=== PATIENT | male | born 1980 | race African-American/Black ===

== ENCOUNTER 2016-07-19 21:30 | Emergency (ER) | payer OTHER ==
--- NOTE | ~2016-07-19 | CT4 ---
[facility] A Service of [facility] RADIOLOGY TEXT RESULTS PATIENT: DALE GRACE LOCATION: [facility] : 78 UNIT #: [id number] AGE: [address]: Joseph Castillo MD SEX: M ORDER DR: [id number] [facility] [address]. [place], [place] [address] [id number] MR#: [id number] Acc #: [id number] NAME: DALE GRACE : 1980 SEX: M STUDY DATE/TIME: 07/19/2016 22:31 UNIT: [facility] ROOM: STUDY DESCRIPTION: CT Abd and Pelv Wo Cont Attending Physician: Carlos Castillo M.D. Ordering Physician: Fran Monsivais M.D. Primary Care Physician: No Primary Care Physician MEDICAL IMAGING REPORT This report is preliminary unless electronic signature is present EXAM CT abdomen and pelvis without contrast HISTORY Bilateral flank pain and back pain for [address] exam was performed with one or more of the following radiation dose reduction techniques: automatic control, adjustment of mA and/or kV according to patient size, and iterative reconstruction. FINDINGS CT abdomen and pelvis was performed without contrast CT ABDOMEN: No renal calculi or hydronephrosis. No perinephric stranding. The liver, gallbladder, pancreas, and adrenal glands are normal. Parenchymal scar in the mid spleen measures approximately 2 cm. No ascites. No adenopathy. Normal caliber abdominal aorta. CT PELVIS: Appendectomy. No free fluid. No adenopathy or bowel dilatation. The urinary bladder is unremarkable. IMPRESSION 1. No acute findings in the abdomen or pelvis. 2. Appendectomy. 3. No urinary calculi or obstruction. Dictated by... Bobby Watkins M.D. THIS IS AN ELECTRONICALLY VERIFIED REPORT Bobby Watkins M.D. at 07/20/2016 10:57 PM [facility] A Service of [facility] RADIOLOGY TEXT RESULTS PATIENT: DALE GRACE LOCATION: [facility] : 78 UNIT #: [id number] AGE: [address]: Joseph Castillo MD SEX: M ORDER DR: CEE/justin TD: 07/20/2016 03:15 JOB #: [id number] MEDICAL IMAGING REPORT Page 1 of 1 COPY
[2016-07-19 20:03] LABS: BASOPHIL# 0.1 X10e3 (0-0.3); BASOPHIL% 0.8 % (0-2.5); EOSINOPHIL# 0.2 X10e3 (0-0.7); EOSINOPHIL% 1.9 % (0.0-7.0); LYMPHOCYTE# 2.2 X10e3 (1.0-3.5); MEAN CELL VOLUME 91.5 FL (83-96); MEAN CORPUSCULAR HEMOGLOBIN 29.8 PG (28-34); MEAN CORPUSCULAR HGB CONC 32.6 g/dL (30-36); MEAN PLATELET VOLUME 8.6 FL (6.5-11.5); MONOCYTE# 0.5 X10e3 (0-1.0); MONOCYTE% 6.4 % (3.0-12.0); NEUTROPHIL# 5.7 X10e3 (1.5-7.1); NEUTROPHIL% 65.9 % (40-75); PLATELET COUNT 235 X10e3 (140-420); RED CELL DISTRIBUTION WIDTH 13.9 % (11.0-15.5); WHITE BLOOD COUNT 8.6 X10e3 (4.0-10.5)
[2016-07-19 20:05] LABS: DIFF IND NO
[2016-07-19 20:28] LABS: ALBUMIN SERUM 4.1 g/dL (3.5-5.0); ALKALINE PHOSPHATASE 67 U/L (32-92); ALT (SGPT) 33 U/L (10-40); AST (SGOT) 21 U/L (10-42); BILIRUBIN,TOTAL 0.4 mg/dL (0.2-2.0); BLOOD UREA NITROGEN 13 mg/dL (9-23); BUN/CREATININE RATIO 11.81; CALCIUM SERUM 9.2 mg/dL (8.4-10.2); CARBON DIOXIDE 26 mmol/L (22-31); CHLORIDE 106 mmol/L (100-111); CREATININE SERUM 1.1 mg/dL (0.6-1.4); GLOM FILT RATE Estimated 98.9 mL/min (>60); GLUCOSE FASTING 105 mg/dL (70-110); LIPASE 31 U/L (22-51); POTASSIUM 3.4 mmol/L (3.5-5.1); PROTEIN TOTAL SERUM 7.6 g/dL (6.0-8.3); SODIUM 139 mmol/L (135-145)
[2016-07-19 20:41] LABS: BILIRUBIN, DIRECT <0.1 mg/dL (0.0-0.2); BILIRUBIN,INDIRECT 0.3 mg/dL (0.0-0.9)
[2016-07-19 21:12] LABS: URINE SOURCE CLEAN CATCH
[2016-07-19 21:17] LABS: URINE APPEARANCE CLEAR; URINE BILIRUBIN NEG (NEG); URINE BLOOD NEG (NEG); URINE COLOR YELLOW; URINE GLUCOSE NEG (NEG); URINE KETONE NEG (NEG); URINE LEUKOCYTE ESTERASE NEG (NEG); URINE NITRATE NEG (NEG); URINE PH 5.5 (5-8); URINE PROTEIN NEG (NEG); URINE SPECIFIC GRAVITY 1.028 (1.003-1.035)
[2016-07-19 21:23] LABS: CULTURE INDICATED? NO
[2016-07-23 01:59] LABS: CHLAMYDIA TRACH Not Detected (Not Detected); N GONOR Not Detected (Not Detected)
== END 2016-07-19 23:50 | disposition home or self-care (01) ==
LOC: CED 21:30
PROVIDERS: Emergency Medicine
DX: M54.5 Low back pain (principal); F17.210 Nicotine dependence, cigarettes, uncomplicated
CPT/HCPCS: 36415; 74176; 80048; 80076; 81003; 83690; 85025; 87491; 87591; 96374; 99284; J1885

== ENCOUNTER 2016-08-14 14:50 | Emergency (ER) | payer OTHER ==
[2016-08-14 15:41] LABS: BASOPHIL# 0.1 X10e3 (0-0.3); BASOPHIL% 1.2 % (0-2.5); EOSINOPHIL# 0.1 X10e3 (0-0.7); EOSINOPHIL% 1.8 % (0.0-7.0); LYMPHOCYTE# 1.6 X10e3 (1.0-3.5); LYMPHOCYTE% 21.1 % (17.0-45.0); MEAN CELL VOLUME 91.3 FL (83-96); MEAN CORPUSCULAR HEMOGLOBIN 29.7 PG (28-34); MEAN CORPUSCULAR HGB CONC 32.6 g/dL (30-36); MEAN PLATELET VOLUME 9.3 FL (6.5-11.5); MONOCYTE# 0.6 X10e3 (0-1.0); NEUTROPHIL# 5.1 X10e3 (1.5-7.1); NEUTROPHIL% 67.9 % (40-75); PLATELET COUNT 220 X10e3 (140-420); RED BLOOD COUNT 4.71 X10e (3.90-5.60); RED CELL DISTRIBUTION WIDTH 13.5 % (11.0-15.5); WHITE BLOOD COUNT 7.5 X10e3 (4.0-10.5)
[2016-08-14 15:46] LABS: DIFF IND NO
[2016-08-14 15:58] LABS: URINE SOURCE CLEAN CATCH
[2016-08-14 16:08] LABS: URINE APPEARANCE CLEAR; URINE BILIRUBIN NEG (NEG); URINE BLOOD NEG (NEG); URINE COLOR YELLOW; URINE GLUCOSE NEG (NEG); URINE KETONE NEG (NEG); URINE LEUKOCYTE ESTERASE NEG (NEG); URINE NITRATE NEG (NEG); URINE PH 5.5 (5-8); URINE PROTEIN NEG (NEG); URINE SPECIFIC GRAVITY 1.023 (1.003-1.035); URINE UROBILINOGEN 0.2 MG/DL (NEG)
[2016-08-14 16:10] LABS: ALBUMIN SERUM 4.2 g/dL (3.5-5.0); ALKALINE PHOSPHATASE 70 U/L (32-92); ALT (SGPT) 33 U/L (10-40); AMYLASE 28 U/L (0-46); AST (SGOT) 22 U/L (10-42); BILIRUBIN, DIRECT <0.1 mg/dL (0.0-0.2); BILIRUBIN,INDIRECT 0.5 mg/dL (0.0-0.9); BILIRUBIN,TOTAL 0.6 mg/dL (0.2-2.0); BLOOD UREA NITROGEN 12 mg/dL (9-23); CALCIUM SERUM 9.1 mg/dL (8.4-10.2); CARBON DIOXIDE 28 mmol/L (22-31); CHLORIDE 100 mmol/L (100-111); CREATININE SERUM 1.1 mg/dL (0.6-1.4); GLOM FILT RATE Estimated 98.9 mL/min (>60); GLUCOSE FASTING 86 mg/dL (70-110); LIPASE 24 U/L (22-51); POTASSIUM 3.6 mmol/L (3.5-5.1); PROTEIN TOTAL SERUM 7.5 g/dL (6.0-8.3); SODIUM 135 mmol/L (135-145)
[2016-08-14 16:17] LABS: CULTURE INDICATED? NO
[2016-08-18 20:48] LABS: CHLAMYDIA TRACH Not Detected (Not Detected); N GONOR Not Detected (Not Detected)
== END 2016-08-14 17:36 | disposition home or self-care (01) ==
LOC: CED 14:50
PROVIDERS: Emergency Medicine
DX: R10.84 Generalized abdominal pain (principal); I10 Essential (primary) hypertension; Z98.890 Other specified postprocedural states; F17.210 Nicotine dependence, cigarettes, uncomplicated
CPT/HCPCS: 80048; 80076; 81003; 82150; 83690; 85025; 87491; 87591; 99284

== ENCOUNTER → 2016-08-20 | Outpatient (CLI) | payer OTHER ==
--- NOTE | ~2016-08-20 | NM22 ---
[facility] A Service of [facility] RADIOLOGY TEXT RESULTS PATIENT: DALE GRACE LOCATION: [facility] : 78 UNIT #: [id number] AGE: [address]: Jose Cruz Faye MD SEX: M ORDER DR: [id number] [facility] [address] [place], [place] [address] [id number] O MR#: [id number] Acc #: [id number] NAME: DALE GRACE : 1980 SEX: M STUDY DATE/TIME: 08/20/2016 11:08 UNIT: [facility] ROOM: STUDY DESCRIPTION: DAVY Hepatobiliary W GB Pharm Attending Physician: Jose Cruz Faye M.D. Referring Physician: Jose Cruz Faye M.D. Ordering Physician: Jose Cruz Faye M.D. Primary Care Physician: Generic Doctor Not In System MEDICAL IMAGING REPORT This report is preliminary unless electronic signature is present EXAM Radionuclide biliary scan 08/20/2016 HISTORY Abdomen pain, left upper quadrant, right upper quadrant epigastric and low back pain, constipation, bloating, abdomen is tender to touch. Bilateral shoulder pain and weakness. Short of air, chest pressure and tightness. Deep breathing hurts abdomen and both flanks, appetite loss symptoms for a few months. Told at [facility] that excess calcium was found on both kidneys recently. Appendectomy 20 years ago. No history of cancer. Following intravenous administration of 4.78 mCi technetium 99m Choletec, static images of the abdomen were obtained at 15-minute intervals over 60 minutes. The patient then received 30-minute Kinevac infusion with administration of 2.7 mcg Kinevac. Images of abdomen obtained before and after Kinevac infusion. The gallbladder ejection fraction calculated with region of interest drawn around the gallbladder. Homogeneous distribution of radiotracer throughout the liver at 15 minutes post administration. Radiotracer is seen within the common bile duct, duodenum and gallbladder at 50 minutes post administration. There is no evidence of acute cholecystitis or cystic duct obstruction. During initial hour of study, tracer accumulates in the small bowel and gallbladder. With intravenous Kinevac infusion, the 30-minute ejection fraction is 76.1%. Normal is greater than or equal to 30%. Dictated by... Pedro Linda M.D. [facility] A Service of [facility] RADIOLOGY TEXT RESULTS PATIENT: DALE GRACE LOCATION: [facility] #: [id number] : 78 UNIT #: [id number] AGE: [address]: Jose Cruz Faye MD SEX: M ORDER DR: THIS IS AN ELECTRONICALLY VERIFIED REPORT Pedro Linda M.D. at 08/21/2016 6:33 PM Carlos TD: 08/20/2016 22:01 JOB #: [id number] MEDICAL IMAGING REPORT Page 1 of 1 COPY
== END | disposition home or self-care (01) ==
LOC: CNUC 09:30
DX: R10.84 Generalized abdominal pain (principal)
CPT/HCPCS: 78227; A9537; J2805